=== PATIENT | female | born 1960 | race Hispanic/Latino ===

== ENCOUNTER → 2018-08-04 | Outpatient (CLI) | payer MEDICAID ==
[~2018-08-04] VITALS: Ht 149.9 cm; Wt 68.9 kg
[~2018-08-04] MED LIST: INSU100I3 SQ; INSU100V12 SQ; REGADENOSON 0.4 MG/5 ML PF SYG IVP SCH
== END | disposition home or self-care (01) ==
LOC: SHCH 08:18
PROVIDERS: ATTEND Internal Medicine Cardiovascular Disease
DX: I25.10 Atherosclerotic heart disease of native coronary artery without angina pectoris (principal)
CPT/HCPCS: 78452; 93017; 96374; A9500 ×2; J2785

== ENCOUNTER → 2020-10-07 | Outpatient (CLI) | payer MEDICAID ==
[~2020-10-07] MED LIST changes: -REGADENOSON 0.4 MG/5 ML PF SYG IVP SCH
== END | disposition home or self-care (01) ==
LOC: RAH 09:02
PROVIDERS: ATTEND Internal Medicine
DX: R10.2 Pelvic and perineal pain (principal); K80.20 Calculus of gallbladder without cholecystitis without obstruction; K76.0 Fatty (change of) liver, not elsewhere classified
CPT/HCPCS: 76700; 76856

== ENCOUNTER → 2023-06-18 | Outpatient (CLI) | payer OTHER, MEDICARE | END | disposition home or self-care (01) | LOC: RAH 12:51 | PROVIDERS: ATTEND Internal Medicine | DX: R19.00 Intra-abdominal and pelvic swelling, mass and lump, unspecified site (principal) | CPT/HCPCS: 76700 ==

== ENCOUNTER → 2023-07-01 | Outpatient (CLI) | payer OTHER | END | disposition home or self-care (01) | LOC: RAH 10:00 | PROVIDERS: ATTEND Internal Medicine | DX: K43.9 Ventral hernia without obstruction or gangrene (principal); K76.0 Fatty (change of) liver, not elsewhere classified; R19.00 Intra-abdominal and pelvic swelling, mass and lump, unspecified site; M47.815 Spondylosis without myelopathy or radiculopathy, thoracolumbar region; Z98.890 Other specified postprocedural states | CPT/HCPCS: 74176 ==

== ENCOUNTER → 2024-08-04 | Outpatient (CLI) | payer OTHER ==
--- NOTE | 2024-08-04 15:22 | HMCIMG ---
DEXA BONE DENSITY SURVEY HISTORY: Menopause COMPARISON: None FINDINGS: Bone densitometry study was performed. Bone mineral density of the lumbar spine is 0.913 gram per centimeter square which corresponds to a T score of -1.2 and a Z score of 0.5. Bone mineral density of the left hip is 0.902 grams per centimeter square which corresponds to a T score of -0.5 and a Z score of 0.6. IMPRESSION: 1. Osteopenia of the lumbar spine and normal bone mineral density of left hip.
== END | disposition home or self-care (01) ==
LOC: RAH 13:16
PROVIDERS: ATTEND Internal Medicine
DX: M85.88 Other specified disorders of bone density and structure, other site (principal); Z78.0 Asymptomatic menopausal state
CPT/HCPCS: 77080

== ENCOUNTER → 2024-10-05 | Outpatient (CLI) | payer OTHER, MEDICARE ==
[~2024-10-05] MED LIST changes: +IOHEXOL 350 MG/ML 100ML INFUS..BTL IV ONE
--- NOTE | 2024-10-05 12:41 | HMCIMG ---
EXAM: CT Abdomen and Pelvis with Intravenous Contrast CLINICAL HISTORY: 63-year-old female with unspecified abdominal pain. TECHNIQUE: Axial computed tomography images of the abdomen and pelvis with intravenous contrast. Dose reduction technique was used including one or more of the following: automated exposure control, adjustment of mA and kV according to patient size, and/or iterative reconstruction. CONTRAST: 99 mL of IV contrast. COMPARISON: CT Abdomen and Pelvis 07/01/2023. FINDINGS: LUNG BASES: No basilar airspace consolidation or pleural effusion. LIVER: Unremarkable. GALLBLADDER AND BILE DUCTS: Multiple gallstones seen. PANCREAS: Unremarkable. SPLEEN: Unremarkable. ADRENAL GLANDS: Unremarkable. KIDNEYS, URETERS, AND BLADDER: Delayed images demonstrate symmetric excretion of contrast in both kidneys. No hydronephrosis or nephrolithiasis. No ureteral or bladder calculi. STOMACH AND BOWEL: Oral contrast seen in the stomach, small bowel, and colon to the level of the sigmoid colon. No obstruction. No wall thickening. No CT evidence of colitis or acute diverticulitis. APPENDIX: No CT evidence for appendicitis. PERITONEUM: No free fluid. No free air. LYMPH NODES: No lymphadenopathy. REPRODUCTIVE: Uterus and adnexa unremarkable. VASCULATURE: No aortic aneurysm. ABDOMINAL WALL AND SOFT TISSUES: Postoperative changes of the anterior abdominal wall with small hernias containing mesenteric fat only. There has been an interval reduction of an anterior abdominal hernia compared to prior CT Abdomen and Pelvis 07/01/2023. BONES: No fracture or suspicious osseous abnormality. IMPRESSION: 1. Multiple gallstones. 2. Interval reduction of an anterior abdominal hernia compared to prior CT Abdomen and Pelvis 07/01/2023. /[place]
== END | disposition home or self-care (01) ==
LOC: RAH 10:48
PROVIDERS: ATTEND Internal Medicine
DX: K80.20 Calculus of gallbladder without cholecystitis without obstruction (principal); K43.9 Ventral hernia without obstruction or gangrene; R10.9 Unspecified abdominal pain
CPT/HCPCS: 74178; Q9967